=== PATIENT | male | born 2000 | race Caucasian/White ===

== ENCOUNTER 2023-01-14 16:00 | Outpatient (RCR) | payer OTHER, SELFPAY ==
--- NOTE | 2023-01-09 16:48 | PT.OPEX ---
[facility] Eval Start: 01/09/23 13:46 Freq: Status: Active Protocol: Document 01/09/23 13:46 AMS (Rec: 01/09/23 16:41 AMS [id number]) E-signed By Sarah Chi, PT Physical Therapy Outpatient Evaluation Insurance Information Insurance Name Alexander Nunez Medical Diagnosis Right-sided lumbar strain Treating Diagnosis Low back pain Low back strain Referring MD Brinda Arias Subjective Subjective 22-year-old male presents to the Urgent Care with a chief complaint of a back injury that occurred today while he was working. 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 Reports his pain is slightly improved with sitting and is worse with twisting and forward motion. Initially reports the pain was 8 to 9/ 10, is now down to 3 to 4/10 with the use of an ice pack only, describes as tightness. Has not taken any Tylenol or ibuprofen or any other pain relievers to help his discomfort. Reports a history of intermittent back pain that has never been imaged or treated by a physician, chiropractor, physical therapist, or massage therapist. No history of fractures, back surgeries, or trauma. Reports that he has worked in a number of healthcare positions throughout his life and feels he does not always use the most ergonomic positioning when moving patients. He is requesting imaging of his back to ensure there is no visible signs of trauma or fracture. 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 Denies fevers, chills, night sweats, URI symptoms, neck pain/stiffness, difficulty swallowing, chest pain, shortness a breath/difficulty breathing, nausea, vomiting, diarrhea, rashes, numbness and tingling of the bilateral lower extremities, saddle anesthesia, loss of bowel or bladder function, weakness of the bilateral lower extremities. -Brinda Arias, Pt states he was putting on a 20-30 lb backpack while helping lift a stretcher at work 2 days ago when he pushed the cot around a bend, twisting awkwardly. He felt pain immediately and a pop and tugging sensation on the right side of his back and wasn't able to bend over to put blood pressure cuff on due to pain. The pain also felt like it went up to his ribs. The pain subsided later that day after a few hours. He is workman's compensation for this and was cleared to return to work on Friday 01/12 without restrictions; however, his first shift back isn't until , 01/15. He had x-rays, which were unremarkable. He now localizes the pain to his right-sided low back and describes it as a pulling. He states he pulled it again yesterday while bending and twisting to throw something into garbage can. Denies numbness and tingling, changes in symptoms with coughing or sneezing, or bowel or bladder changes. Functional limitations/aggravating factors include bending, lifting, and twisting. Easing factors include NSAIDs, muscle relaxers, and cooling Methol . Current exercise routine: calesthenics daily (push ups, sit ups, pull ups, etc - CrossFit/body weight exercises according to a written plan he follows), running 3x/week 5 miles at a time, swimming 3x/ week, and lifting free weights 3x/week. He does 1-2 hours per day 7x/week, but has taken the last two days off after his injury. He states that he knows he needs to use better lifting mechanics at work and stretch his lower body before working out and after, but he doesn't to save time and because it is a habit. Feels this wouldn't have happened if he was better at stretching and lifting ergonomically. He is fearful of it happening again. The doctor gave him exercises to do, but instructed him not to perform them until visiting physical therapist. 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 Gait Assessment: Normalized, heel toe gait. Mildly decreased trunk rotation due to muscle guarding. FUNCTIONAL MOBILITY Double leg squat: To 90 deg, no pain, glute dominant LUMBAR ROM Flexion: 100% Extension: 100% Right Sidebendin% Left Sidebendin%, mild pain in right-sided low back Right rotation: 100%, mild pain in right-sided low back Left rotation: 100% REPEATED MOVEMENTS: Lumbar flexion: Mildly increased symptoms Lumbar extension: No change in symptoms THORACIC ROM Full and pain-free, other than mild pain with flexion HIP ROM (R/L) Pain-free and full; mild stiffness into IR bilaterally but WFL LE MMT Hip flexion: R 5/5 L 5/5 Hip Extension: R 5/5 L 5/5 Hip abduction: R 5/5 L 5/5 Knee extension: R 5/5 L 5/5 Knee Flexion: R 5/5 L 5/5 Dorsiflexion/heel walk: R 5/5 L 5/5 JOINT MOBILITY/PALPATION No TTP to lumbar or thoracic spine; no TTP to right buttock or lumbar paraspinals SPECIAL TESTS -Straight leg raise: - -Crossed straight leg raise: - SI/HIP tests -LIZZIE: - -FADIR: - Assessment Assessment/Impression Pt is a 22 -year-old male who presents with concerns of acute right-sided low back pain and low severity and irritability. Signs and symptoms are likely indicating / consistent with right-sided low back muscle strain. X- rays performed, which were unremarkable. This is a workman's compensation case, as patient's job requires repetitive heavy lifting; pt was cleared to return next week to work. On exam, patient also demonstrates notable objective findings including pain with repeated flexion, right lumbar rotation, and left sidebending, normal hip exam, and normal lower extremity strength, leading to difficulties with bending, lifting, and twisting required for his work. Good response to gentle mobility exercises this visit with no pain by end of session and discussed/ reviewed good lifting mechanics with work. Patient is appropriate for skilled physical therapy services to address the above deficits. Pt was agreeable with plan of care and goals established. Primary Functional Limitations Bending, lifting, and twisting Plan of Care Rehabilitation Potential Good Physical Therapy Goals In 2 sessions: Pt will demonstrate independence with HEP for self -management of symptoms. Pt will demonstrate pain-free, full lumbar ROM for improved ability to return to work as EMT. Pt will return to work without restrictions and <2/10 pain with all lifting activities. Pt will demonstrate proper lifting mechanics for improved long-term management of symptoms and decreased strain on low back. MET Coordination/Communication With Referral Source Treatment Plan/Direct Interventions Joint Mobilization,Manual Therapy,Neuromuscular Re-ed, Self-Care/Home Management, Therapeutic Activities, Therapeutic Exercises Frequency/Duration 1x/week for 2 visits Patient Will Be Discharged From Therapy Completion of LTG(s), Independent w/HEP, Independently Progressing Evaluation Billing Untimed Code Treatment Minutes 25 Complexity Low Certification Information Physician Comment/Change : Physician NPI Number #
== END 2023-04-06 12:33 | disposition home or self-care (01) ==
PROVIDERS: Visit Provider Nurse Practitioner Family
DX: S39.012A Strain of muscle, fascia and tendon of lower back, initial encounter (principal); T14.8XXA Other injury of unspecified body region, initial encounter; Y99.0 Civilian activity done for income or pay; Z51.89 Encounter for other specified aftercare
CPT/HCPCS: 97110; 97140; 97161